=== PATIENT | male | born 1995 | race African-American/Black ===

== ENCOUNTER 2022-01-05 12:18 | Emergency (ER) | payer OTHER ==
[~2022-01-05] VITALS: Ht 180.3 cm; Wt 129.3 kg
[2022-01-05 12:46] VITALS: BP 139/95
[2022-01-05] MEDS ORDERED: LIDOCAINE 1%HCL (LOCAL ANESTH) 10 ML MDV ONE (12:56)
[2022-01-05] MEDS ORDERED: LIDO2SOL23 PO (12:59)
[2022-01-05] MEDS ORDERED: AZIT500T66 PO (12:59)
[2022-01-05] MEDS ORDERED: cefTRIAXone SOD 1,000 MG VL IM ONE (13:00)
[2022-01-05] MEDS ORDERED: methylPREDNISolone SOD SUCC 125 MG/2 ML VL IM ONE (13:00)
== END 2022-01-05 13:22 | disposition home or self-care (01) ==
LOC: ER 12:18
DX: J03.90 Acute tonsillitis, unspecified (principal)
CPT/HCPCS: 96372; 99284; J0696; J2001; J2930